=== PATIENT | female | born 1960 | race Caucasian/White ===

== ENCOUNTER → 2019-12-17 | Emergency (ER) | payer OTHER ==
[~2019-12-17] VITALS: Ht 167.6 cm; Wt 72.6 kg
[~2019-12-17] MED LIST: ALBUTEROL SULFATE
== END | disposition home or self-care (01) ==
LOC: ER 16:25
DX: R06.02 Shortness of breath (principal)

== ENCOUNTER → 2022-07-17 | Emergency (ER) | payer OTHER ==
[~2022-07-17] VITALS: Ht 167.6 cm; Wt 77.1 kg
[~2022-07-17] MED LIST changes: +ATORVASTATIN CA10 MG PO; +FELODIPINE ER10 MG PO; +HYDROCHLOROTH12.5 MG PO
== END | disposition home or self-care (01) ==
LOC: ER 16:07
DX: M25.512 Pain in left shoulder (principal); M79.89 Other specified soft tissue disorders; Z88.8 Allergy status to other drugs, medicaments and biological substances